=== PATIENT | female | born 1985 | race African-American/Black ===

== ENCOUNTER → 2018-03-18 | Day surgery (SDC) | payer OTHER ==
--- NOTE | 2018-03-19 15:49 | PATH ---
Cytology Non-Gynecological Report Patient Name: MARLY ALVES [facility]. Rec. #: [id number] /Age/Gender: 1985 (Age: 32) / F Account: [id number] Location: RADIOLOGY INTER Taken: 03/18/2018 Received: 03/18/2018 Reported: 03/19/2018 Physicians: Shea Martinez M.D. Specimen(s) Received LEFT THYROID FNA Clinical History Left thyroid nodule, 1.60 x 0.90 x 1.06 cm Final Diagnosis THYROID, LEFT, FINE NEEDLE ASPIRATION: SATISFACTORY FOR EVALUATION. B[place] CLASS II: BENIGN. CYTOLOGIC FINDINGS ARE CONSISTENT WITH A BENIGN FOLLICULAR NODULE. SMALL FOLLICULAR CELLS AND COLLOID PRESENT. Electronically Signed Linda Canela M.D. Gross Description Received are eight direct smears, four of which are air-dried and Diff-Quik stained, and four of which are alcohol fixed and Pap stained. Also received is 20 ml of greenish fluid fixed in formalin from which one cellblock is prepared. Received is a 1.5 ml molecular ThyroSeq tube.
== END | disposition home or self-care (01) ==
LOC: JRADIR 09:16
PROVIDERS: ATTEND Surgery
PROC: 0G9G3ZX Drainage of Left Thyroid Gland Lobe, Percutaneous Approach, Diagnostic (ICD-10-PCS; principal; 2018-03-18)
PROC: BG44ZZZ Ultrasonography of Thyroid Gland (ICD-10-PCS; 2018-03-18)
DX: E04.1 Nontoxic single thyroid nodule (principal)
CPT/HCPCS: 76942; 88173; 88305-TC